=== PATIENT | male | born 1970 | race Caucasian/White ===

== ENCOUNTER → 2017-04-10 | Outpatient (CLI) | payer OTHER ==
--- NOTE | ~2017-04-10 | XA30 ---
[facility] A Service of [facility] & [facility] RADIOLOGY TEXT RESULTS PATIENT: JEREMY JENKINS LOCATION: CIVR : 66 UNIT #: [id number] AGE: [address]: Lion Pabon MD SEX: M ORDER DR: [id number] [facility]. [place], [place] [address] [id number] MR#: [id number] Acc #: [id number] NAME: JEERMY JENKINS : 1970 SEX: M STUDY DATE/TIME: 04/10/2017 9:58 UNIT: [facility] ROOM: STUDY DESCRIPTION: XA Arthrocentesis Major Joint Attending Physician: Lion Pabon M.D. Ordering Physician: Lion Pabon M.D. Primary Care Physician: Primary Care Physician No MEDICAL IMAGING REPORT This report is preliminary unless electronic signature is present EXAM Fluoroscopically guided left hip aspiration CLINICAL HISTORY Cutaneous drainage, question sinus tract. Question hip infection. PROCEDURE Informed consent was obtained. Fluoroscopic guidance was utilized. Total fluoro time 1 minute with 3 spot images. A skin site was selected with fluoroscopic guidance and marked, sterilely prepped and draped and locally anesthetized. Initially a 22-gauge spinal needle was advanced into the joint, with both fluoroscopic confirmation and tactile confirmation of metal on metal contact but no fluid could be aspirated. Subsequently, an 18-gauge needle was advanced into the joint using the same criteria and standards. Again no fluid could be aspirated. Spot images again confirmed intraarticular needle tip position. IMPRESSION Left hip prosthesis was punctured with first a 22 and then 18 gauge needle with both fluoroscopic and tactile confirmation of intraarticular needle tip position but no fluid could be aspirated on either occasion. Dictated by... Kamlesh Patino M.D. THIS IS AN ELECTRONICALLY VERIFIED REPORT Kamlesh Patino M.D. at 04/14/2017 4:52 PM DIONTE/rita TD: 04/11/2017 11:59 JOB #: [id number] MEDICAL IMAGING REPORT [facility] A Service of [facility] & [facility] RADIOLOGY TEXT RESULTS PATIENT: JEREMY JENKINS LOCATION: [facility] #: [id number] : [birth year] UNIT #: [id number] AGE: [address]: Lion Pabon MD SEX: M ORDER DR: Page 1 of 1 COPY
== END | disposition home or self-care (01) ==
LOC: CIVR 09:34
DX: M25.552 Pain in left hip (principal); Z96.642 Presence of left artificial hip joint
CPT/HCPCS: 77002